=== PATIENT | female | born 1955 | race Caucasian/White ===

== ENCOUNTER 2022-07-18 22:17 | Inpatient (IN) | payer OTHER ==
[2022-07-18] MEDS ORDERED: morphine SULFATE 4 MG/ML VIAL ONE (23:06)
[2022-07-18] MEDS ORDERED: morphine CARPU-JECT 4 MG/1 ML DISP.SYRIN IM ONE (23:12)
[2022-07-18] MEDS: morphine SULFATE 4 MG/ML VIAL IM ONE ×2 (23:15→23:16)
[2022-07-19 03:43] LABS: BASO % 0.9 % (0-2.0); EOS % 1.2 % (0-4.5); HEMATOCRIT 27.6 % (32.4-45.2); HEMOGLOBIN 9.1 GM/dL (10.7-15.3); LYMPH % 37.6 % (8-40); MCH 34.3 pg (25.7-33.7); MCHC 33.1 g/dl (32.0-36.0); MEAN CELL VOLUME 103.6 fl (80-96); MEAN PLT VOLUME 6.9 fl (7.5-11.1); NEUT % 56.3 % (42.8-82.8); PLATELET COUNT 338 10^3/uL (134-434); RBC 2.66 M/mm3 (3.60-5.2); RDW 19.9 % (11.6-15.6); WHITE BLOOD COUNT 9.4 K/mm3 (4.0-10.0)
[2022-07-19 03:50] LABS: INR 1.09 (0.83-1.09); PROTHROMBIN TIME (PATIENT) 12.5 SEC (9.7-13.0)
[2022-07-19 03:52] LABS: ACTIVATED PTT 28.8 SECONDS (25.2-36.5)
[2022-07-19 04:03] LABS: CALCIUM 10.4 mg/dL (8.5-10.1)
[2022-07-19 04:04] LABS: ALBUMIN 3.3 g/dl (3.4-5.0); BLOOD UREA NITROGEN 22.6 mg/dL (7-18); MAGNESIUM 1.9 mg/dL (1.8-2.4)
[2022-07-19 04:07] LABS: CREATININE 0.9 mg/dL (0.55-1.3); PHOSPHOROUS 3.4 mg/dL (2.5-4.9)
[2022-07-19 04:09] LABS: BILIRUBIN,TOTAL 0.2 mg/dL (0.2-1); TOT PROT 6.7 g/dl (6.4-8.2)
[2022-07-19] MEDS: SERTRALINE HCL 25 MG TABLET (FP) PO SCH (12:02)
[2022-07-19] MEDS ORDERED: diazePAM 5 MG TABLET PO ONE (20:00)
[2022-07-19] MEDS: diazePAM 5 MG TABLET PO ONE ×2 (20:08→20:13)
[2022-07-20] MEDS: ENOXAPARIN NA (PORCINE) 40 MG/0.4 ML DISP.SYRIN SQ SCH (11:50)
[2022-07-20] MEDS: SERTRALINE HCL 25 MG TABLET (FP) PO SCH (11:50)
[2022-07-21] MEDS: ENOXAPARIN NA (PORCINE) 40 MG/0.4 ML DISP.SYRIN SQ SCH (10:23)
[2022-07-21] MEDS: SERTRALINE HCL 25 MG TABLET (FP) PO SCH (10:24)
[2022-07-22] MEDS: ENOXAPARIN NA (PORCINE) 40 MG/0.4 ML DISP.SYRIN SQ SCH (09:27)
[2022-07-22] MEDS: ALPRAZolam 0.25 MG TABLET PO PRN (09:28)
[2022-07-22] MEDS: SERTRALINE HCL 25 MG TABLET (FP) PO SCH (09:28)
[2022-07-23 08:07] LABS: HEMATOCRIT 23.5 % (32.4-45.2); HEMOGLOBIN 7.6 GM/dL (10.7-15.3); MCH 33.7 pg (25.7-33.7); MCHC 32.3 g/dl (32.0-36.0); MEAN CELL VOLUME 104.2 fl (80-96); MEAN PLT VOLUME 7.1 fl (7.5-11.1); PLATELET COUNT 301 10^3/uL (134-434); RBC 2.26 M/mm3 (3.60-5.2); RDW 19.3 % (11.6-15.6)
[2022-07-23 08:30] LABS: CALCIUM 10.8 mg/dL (8.5-10.1)
[2022-07-23 08:31] LABS: BLOOD UREA NITROGEN 15.5 mg/dL (7-18)
[2022-07-23 08:34] LABS: CREATININE 0.7 mg/dL (0.55-1.3)
[2022-07-23 08:35] LABS: TOT PROT 6.2 g/dl (6.4-8.2)
[2022-07-23 08:36] LABS: BILIRUBIN,TOTAL 0.2 mg/dL (0.2-1)
[2022-07-23] MEDS: SERTRALINE HCL 25 MG TABLET (FP) PO SCH (09:58)
[2022-07-23 11:17] LABS: ANISOCYTOSIS 2+; MACROCYTOSIS 0; OVALOCYTE 2+; TEAR DROP CELLS 1+
[2022-07-23] MEDS: ALPRAZolam 0.25 MG TABLET PO PRN (11:29)
[2022-07-23 22:25] LABS: EPI CELLS 32 /uL (0-25.1); HYALINE CASTS 31 /uL (0-3.1); URINE APPEARANCE TURBID; URINE BACTERIA >9,000 /uL (0-1359); URINE BILIRUBIN NEGATIVE (NEGATIVE); URINE COLOR YELLOW; URINE GLUCOSE (UA) NEGATIVE (NEGATIVE); URINE KETONE NEGATIVE (NEGATIVE); URINE LEUK ESTERASE 2+ (NEGATIVE); URINE NITRITE POSITIVE (NEGATIVE); URINE PROTEIN 2+ (NEGATIVE); URINE UROBILINOGEN 0.2 mg/dL (0.2-1.0); URINE WBC 549 /uL (0-25.8)
[2022-07-23 23:56] LABS: URINE RBC 157.1 /uL (0-23.9)
[2022-07-23 23:57] LABS: URINE CRYSTALS FEW /hpf; YEAST NONE SEEN (NEGATIVE)
[2022-07-24] MEDS: SERTRALINE HCL 25 MG TABLET (FP) PO SCH (09:16)
[2022-07-24 12:42] VITALS: BMI 19.0
[2022-07-24 17:07] LABS: FREE KAPPA,SERUM Note: mg/L (3.3-19.4)
[2022-07-25] MEDS: SERTRALINE HCL 25 MG TABLET (FP) PO SCH (10:36)
[2022-07-25] MEDS ORDERED: diazePAM 5 MG TABLET PO ONE (11:07)
[2022-07-25] MEDS ORDERED: LORazepam 2 MG/ML SDV VIAL IVPUSH ONE (11:30)
[2022-07-25 17:05] LABS: BASO % 0.7 % (0-2.0); EOS % 1.5 % (0-4.5); HEMATOCRIT 23.2 % (32.4-45.2); HEMOGLOBIN 7.8 GM/dL (10.7-15.3); LYMPH % 33.3 % (8-40); MCH 34.6 pg (25.7-33.7); MCHC 33.4 g/dl (32.0-36.0); MEAN CELL VOLUME 103.6 fl (80-96); MEAN PLT VOLUME 6.8 fl (7.5-11.1); MONO % 4.6 % (3.8-10.2); NEUT % 59.9 % (42.8-82.8); PLATELET COUNT 327 10^3/uL (134-434); RBC 2.24 M/mm3 (3.60-5.2); RDW 19.5 % (11.6-15.6); WHITE BLOOD COUNT 8.3 K/mm3 (4.0-10.0)
[2022-07-25 17:13] LABS: CALCIUM 10.4 mg/dL (8.5-10.1)
[2022-07-25 17:14] LABS: BLOOD UREA NITROGEN 15.8 mg/dL (7-18)
[2022-07-25 17:17] LABS: CREATININE 0.8 mg/dL (0.55-1.3)
[2022-07-25 17:18] LABS: TOT PROT 6.5 g/dl (6.4-8.2)
[2022-07-25 17:19] LABS: BILIRUBIN,TOTAL 0.1 mg/dL (0.2-1)
[2022-07-26 09:06] LABS: BASO % 0.7 % (0-2.0); EOS % 1.7 % (0-4.5); HEMATOCRIT 24.6 % (32.4-45.2); HEMOGLOBIN 8.3 GM/dL (10.7-15.3); LYMPH % 35.4 % (8-40); MCH 34.7 pg (25.7-33.7); MCHC 33.6 g/dl (32.0-36.0); MEAN CELL VOLUME 103.2 fl (80-96); MEAN PLT VOLUME 6.7 fl (7.5-11.1); MONO % 3.3 % (3.8-10.2); NEUT % 58.9 % (42.8-82.8); PLATELET COUNT 333 10^3/uL (134-434); RBC 2.38 M/mm3 (3.60-5.2); RDW 19.9 % (11.6-15.6); WHITE BLOOD COUNT 7.5 K/mm3 (4.0-10.0)
[2022-07-26 09:25] LABS: CALCIUM 11.4 mg/dL (8.5-10.1)
[2022-07-26 09:26] LABS: ALBUMIN 3.1 g/dl (3.4-5.0); BLOOD UREA NITROGEN 15.9 mg/dL (7-18)
[2022-07-26 09:27] LABS: CREATININE 0.7 mg/dL (0.55-1.3)
[2022-07-26 09:30] LABS: BILIRUBIN,TOTAL 0.3 mg/dL (0.2-1); TOT PROT 6.6 g/dl (6.4-8.2)
[2022-07-26] MEDS: SERTRALINE HCL 25 MG TABLET (FP) PO SCH (09:39)
[2022-07-26] MEDS: ALPRAZolam 0.25 MG TABLET PO PRN (09:39)
[2022-07-26] MEDS ORDERED: CEFTRIAXONE 1 GM in DEXTROSE 5%-WATER 100 ML IVPB SCH (13:00)
[2022-07-26] MEDS: ALPRAZolam 0.25 MG TABLET PO SCH ×2 (14:18→21:21)
[2022-07-27] MEDS: ALPRAZolam 0.25 MG TABLET PO SCH ×3 (05:50→21:45)
[2022-07-27] MEDS ORDERED: SEVOFLURANE 250 ML BTL ONE (06:58)
[2022-07-27] MEDS ORDERED: PROPOFOL 20 ML ONE (06:59)
[2022-07-27] MEDS ORDERED: MIDAZOLAM HCL 2 MG/2 ML SINGLE DOSE VIAL ONE (07:00)
[2022-07-27] MEDS ORDERED: BUPIVACAINE HCL 100 ML ONE (07:01)
[2022-07-27] MEDS ORDERED: DEXAMETHASONE SOD PHOSPHATE 10 MG/1 ML VIAL ONE (07:02)
[2022-07-27] MEDS ORDERED: ACETAMINOPHEN 325 MG TABLET (FP) PO PRN ×2 (07:16→09:49)
[2022-07-27] MEDS ORDERED: ONDANSETRON 4 MG/2 ML VIAL IVPUSH PRN ×2 (07:16→09:49)
[2022-07-27] MEDS ORDERED: LACTATED RINGERS SOLUTION 1,000 ML IV SCH ×2 (07:30→09:49)
[2022-07-27] MEDS ORDERED: ceFAZolin SODIUM 1 GM VIAL IVPB ONE (08:40)
[2022-07-27] MEDS ORDERED: ONDANSETRON 4 MG/2 ML VIAL ONE (08:44)
[2022-07-27] MEDS: SERTRALINE HCL 25 MG TABLET (FP) PO SCH (09:33)
[2022-07-27] MEDS ORDERED: LORazepam 2 MG/ML SDV VIAL IVPUSH ONE (09:49)
[2022-07-27] MEDS: CEFTRIAXONE 1 GM in DEXTROSE 5%-WATER 100 ML IVPB SCH (10:51)
[2022-07-27] MEDS ORDERED: ALPRAZolam 0.25 MG TABLET PO PRN (18:12)
[2022-07-27] MEDS: ACETAMINOPHEN 325 MG TABLET (FP) PO PRN (18:15)
[2022-07-28] MEDS: ALPRAZolam 0.25 MG TABLET PO SCH ×3 (06:05→20:46)
[2022-07-28] MEDS: ACETAMINOPHEN 325 MG TABLET (FP) PO PRN (06:07)
[2022-07-28] MEDS: CEFTRIAXONE 1 GM in DEXTROSE 5%-WATER 100 ML IVPB SCH (09:28)
[2022-07-28] MEDS: SERTRALINE HCL 25 MG TABLET (FP) PO SCH (09:29)
[2022-07-28] MEDS ORDERED: morphine CARPU-JECT 2 MG/1 ML DISP.SYRIN IVPUSH PRN (11:15)
[2022-07-28] MEDS ORDERED: ACETAMINOPHEN 1000 MG/100 ML BAG IVPB ONE (23:32)
[2022-07-29] MEDS: ALPRAZolam 0.25 MG TABLET PO SCH ×3 (05:06→20:11)
[2022-07-29] MEDS: SERTRALINE HCL 25 MG TABLET (FP) PO SCH (09:47)
[2022-07-29] MEDS: CEFTRIAXONE 1 GM in DEXTROSE 5%-WATER 100 ML IVPB SCH (09:47)
[2022-07-29 09:54] LABS: HEMATOCRIT 19.6 % (32.4-45.2); MCH 34.7 pg (25.7-33.7); MCHC 33.6 g/dl (32.0-36.0); MEAN CELL VOLUME 103.2 fl (80-96); MEAN PLT VOLUME 6.6 fl (7.5-11.1); PLATELET COUNT 254 10^3/uL (134-434); RDW 19.4 % (11.6-15.6); WHITE BLOOD COUNT 8.5 K/mm3 (4.0-10.0)
[2022-07-29 09:59] LABS: BLOOD UREA NITROGEN 15.1 mg/dL (7-18); CALCIUM 10.5 mg/dL (8.5-10.1)
[2022-07-29 10:00] LABS: ALBUMIN 2.8 g/dl (3.4-5.0)
[2022-07-29 10:02] LABS: CREATININE 0.7 mg/dL (0.55-1.3)
[2022-07-29 10:03] LABS: BILIRUBIN,TOTAL 0.3 mg/dL (0.2-1); TOT PROT 5.9 g/dl (6.4-8.2)
[2022-07-29 10:04] LABS: HEMOGLOBIN 6.6 GM/dL (10.7-15.3)
[2022-07-29 12:23] LABS: ANISOCYTOSIS 2+; MACROCYTOSIS 0
[2022-07-30] MEDS: ALPRAZolam 0.25 MG TABLET PO SCH ×3 (05:23→21:20)
[2022-07-30 09:45] LABS: HEMATOCRIT 23.9 % (32.4-45.2); MCH 33.2 pg (25.7-33.7); MCHC 33.5 g/dl (32.0-36.0); MEAN CELL VOLUME 99.1 fl (80-96); MEAN PLT VOLUME 7.2 fl (7.5-11.1); PLATELET COUNT 265 10^3/uL (134-434); RBC 2.41 M/mm3 (3.60-5.2); RDW 20.1 % (11.6-15.6)
[2022-07-30] MEDS: CEFTRIAXONE 1 GM in DEXTROSE 5%-WATER 100 ML IVPB SCH (09:48)
[2022-07-30] MEDS: SERTRALINE HCL 25 MG TABLET (FP) PO SCH (09:48)
[2022-07-30 10:30] LABS: CALCIUM 11.2 mg/dL (8.5-10.1)
[2022-07-30 10:31] LABS: ALBUMIN 2.8 g/dl (3.4-5.0); BLOOD UREA NITROGEN 11.8 mg/dL (7-18)
[2022-07-30 10:33] LABS: CREATININE 0.6 mg/dL (0.55-1.3)
[2022-07-30 10:35] LABS: BILIRUBIN,TOTAL 0.5 mg/dL (0.2-1); TOT PROT 6.3 g/dl (6.4-8.2)
[2022-07-30] MEDS: oxyCODONE HCL 5 MG TABLET PO PRN (12:46)
[2022-07-30 13:05] LABS: ANISOCYTOSIS 2+; MACROCYTOSIS 0; OVALOCYTE 2+; TEAR DROP CELLS 1+
[2022-07-31] MEDS: oxyCODONE HCL 5 MG TABLET PO PRN (00:48)
[2022-07-31] MEDS: ALPRAZolam 0.25 MG TABLET PO SCH ×4 (05:43→22:20)
[2022-07-31] MEDS: ACETAMINOPHEN 325 MG TABLET (FP) PO PRN ×2 (06:51→14:58)
[2022-07-31] MEDS: CEFTRIAXONE 1 GM in DEXTROSE 5%-WATER 100 ML IVPB SCH (11:17)
[2022-07-31] MEDS: SERTRALINE HCL 25 MG TABLET (FP) PO SCH (11:18)
[2022-08-01] MEDS: ALPRAZolam 0.25 MG TABLET PO SCH ×2 (05:40→14:14)
[2022-08-01 07:19] VITALS: RESP 18
[2022-08-01] MEDS: SERTRALINE HCL 25 MG TABLET (FP) PO SCH (09:49)
[2022-08-01] MEDS: ACETAMINOPHEN 325 MG TABLET (FP) PO PRN (09:49)
[2022-08-01] MEDS: CEFTRIAXONE 1 GM in DEXTROSE 5%-WATER 100 ML IVPB SCH (09:49)
[2022-08-01 14:57] VITALS: BP 96/58; PULSE 99; TEMP 98.4
== END 2022-08-01 15:13 | DRG 315 ==
LOC: JER 22:17 → JERBED 07-19 01:31 → J7W 07-19 16:35 → OBSVTOIN 07-23 10:53
PROVIDERS: ADMIT Hospitalist; ATTEND Internal Medicine
PROC: 07DT3ZX Extraction of Bone Marrow, Percutaneous Approach, Diagnostic (ICD-10-PCS; 2022-07-23)
PROC: 0PB Upper Bones, Excision (ICD-10-PCS; 2022-07-27)
PROC: 0PHG36Z Insertion of Intramedullary Internal Fixation Device into Left Humeral Shaft, Percutaneous Approach (ICD-10-PCS; principal; 2022-07-27 08:44)
PROC: 30233N1 Transfusion of Nonautologous Red Blood Cells into Peripheral Vein, Percutaneous Approach (ICD-10-PCS; 2022-07-29)
DX: M84.522A Pathological fracture in neoplastic disease, left humerus, initial encounter for fracture (principal); C79.51 Secondary malignant neoplasm of bone; E43 Unspecified severe protein-calorie malnutrition; C90.00 Multiple myeloma not having achieved remission; D51.9 Vitamin B12 deficiency anemia, unspecified; F41.9 Anxiety disorder, unspecified; M85.80 Other specified disorders of bone density and structure, unspecified site; Z68.1 Body mass index [BMI] 19.9 or less, adult; F41.8 Other specified anxiety disorders
CPT/HCPCS: 20225; 36415; 36430; 71250-TC; 72050-TC-FY; 72070-TC-FY; 72100-TC-FY; 73030-TC-LT-FY; 73060-TC-LT-FY; 73221-TC-LT; 74176-TC; 76000-TC-FY; 78306-TC; 80048; 80053; 81003; 82784; 83735; 83883; 84100; 84155; 84165; 85025; 85610; 85730; 86850; 86900; 86901; 86922; 87086; 87186; 88304-TC; 88307-TC; 88311-TC; 88341-TC; 93005; 93010; 94760; 99285-25; A9503; C1713; C9803-CS; G0378; J1100; P9058; U0003; U0005

== ENCOUNTER 2023-06-04 23:15 | Inpatient (IN) | payer OTHER ==
[2023-06-05] MEDS ORDERED: ACETAMINOPHEN 1000 MG/100 ML BAG IVPB ONE ×2 (00:14→20:54)
[2023-06-05] MEDS ORDERED: PIPERACILLIN/TAZOBACTAM 4.5 GM VIAL IVPB ONE (00:14)
[2023-06-05] MEDS ORDERED: SODIUM CHLORIDE 0.9% 500 ML INFUS.BAG IV ONE ×2 (00:14→02:03)
[2023-06-05] MEDS ORDERED: VANCOMYCIN 750 MG in DEXTROSE 5%-WATER - 100 ML IVPB ONE (00:14)
[2023-06-05 00:18] LABS: VENOUS BASE EXCESS -2.7 mmol/L (-2-2); VENOUS O2 SATURATION 79.8 % (70-80); VENOUS PCO2 60.3 mmHg (38-52); VENOUS PH 7.236 (7.310-7.410)
[2023-06-05] MEDS ORDERED: ACETAMINOPHEN INJECTION 100 ML IVPB ONE (00:20)
[2023-06-05] MEDS ORDERED: PIPERACILLIN/TAZOB 4.5 GM 4.5 GM/100 ML BAG IVPB ONE (00:20)
[2023-06-05 00:27] LABS: HEMATOCRIT 25.3 % (32.4-45.2); HEMOGLOBIN 7.9 GM/dL (10.7-15.3); MCH 35.1 pg (25.7-33.7); MCHC 31.4 g/dl (32.0-36.0); MEAN CELL VOLUME 111.6 fl (80-96); MEAN PLT VOLUME 8.2 fl (7.5-11.1); PLATELET COUNT 173 10^3/uL (134-434); RBC 2.26 M/mm3 (3.60-5.2); WHITE BLOOD COUNT 8.5 K/mm3 (4.0-10.0)
[2023-06-05 00:35] LABS: INR 1.21 (0.83-1.09)
[2023-06-05 00:37] LABS: ACTIVATED PTT 28.7 SECONDS (25.2-36.5)
[2023-06-05 00:47] LABS: CHLORIDE 107 mmol/L (98-107); SODIUM 142 mmol/L (136-145)
[2023-06-05 00:49] LABS: ALBUMIN 3.2 g/dl (3.4-5.0); BLOOD UREA NITROGEN 69.7 mg/dL (7-18); CALCIUM 8.3 mg/dL (8.5-10.1); CO2 30 mmol/L (21-32); GLUCOSE,RANDOM 168 mg/dL (74-106)
[2023-06-05 00:52] LABS: SGOT/AST 80 U/L (15-37); SGPT/ALT 51 U/L (13-61)
[2023-06-05 00:54] LABS: TOT PROT 6.4 g/dl (6.4-8.2)
[2023-06-05 00:55] LABS: ALK PHOS 153 U/L (45-117); CREATININE 2.4 mg/dL (0.55-1.3)
[2023-06-05 01:07] LABS: EPI CELLS 16 /uL (0-25.1); HYALINE CASTS 0 /uL (0-3.1); PH,URINE 5.5 (5.0-8.0); URINE APPEARANCE TURBID; URINE BACTERIA >9,000 /uL (0-1359); URINE BILIRUBIN NEGATIVE (NEGATIVE); URINE COLOR YELLOW; URINE GLUCOSE (UA) NEGATIVE (NEGATIVE); URINE KETONE NEGATIVE (NEGATIVE); URINE LEUK ESTERASE 3+ (NEGATIVE); URINE NITRITE NEGATIVE (NEGATIVE); URINE PROTEIN 3+ (NEGATIVE); URINE RBC 43 /uL (0-23.9); URINE UROBILINOGEN 0.2 mg/dL (0.2-1.0); URINE WBC 5146 /uL (0-25.8)
[2023-06-05 01:07] LABS: BILIRUBIN,TOTAL 0.1 mg/dL (0.2-1)
[2023-06-05 01:08] LABS: ANION GAP 5 MMOL/L (8-16); POTASSIUM 6.5 mmol/L (3.5-5.1)
[2023-06-05] MEDS ORDERED: CALCIUM GLUCONATE 10% - 1,000 MG/10 ML VIAL IVPUSH ONE (01:12)
[2023-06-05] MEDS ORDERED: INSULIN REGULAR HUMAN 100 UNITS/ML *VIAL IVPUSH ONE ×3 (01:14→21:58)
[2023-06-05] MEDS ORDERED: SODIUM CHLORIDE 500 ML IV STA (01:15)
[2023-06-05] MEDS ORDERED: DEXTROSE 50%-WATER - 25 GM/50 ML VIAL IVPUSH ONE (01:15)
[2023-06-05] MEDS ORDERED: CALCIUM GLUC IN NACL, ISO-OSM 1 GM/50 ML BAG IVPB ONE ×2 (01:17→08:18)
[2023-06-05] MEDS ORDERED: DEXTROSE 50%-WATER 25 GM/50 ML DISP.SYRIN ONE (01:18)
[2023-06-05] MEDS ORDERED: INSULIN REGULAR HUMAN 100 UNITS/ML *VIAL ONE (01:18)
[2023-06-05 01:58] LABS: ANISOCYTOSIS 2+; MACROCYTOSIS 1+; ROULEAU 1+
[2023-06-05] MEDS ORDERED: ROCURONIUM BROMIDE 50 MG/5 ML SYRINGE ONE (02:19)
[2023-06-05] MEDS ORDERED: FENTANYL CITRATE/PF 50 MCG/ML VIAL ONE (02:21)
[2023-06-05] MEDS ORDERED: PHENYLEPHRINE HCL 10 MG/1 ML SINGLE DOSE VIAL ONE (02:23)
[2023-06-05] MEDS ORDERED: FENTANYL CITRATE/PF 50 MCG/ML VIAL IVPUSH ONE (02:35)
[2023-06-05] MEDS ORDERED: PHENYLEPHRINE HCL 10 MG/1 ML SINGLE DOSE VIAL IVPB ONE (02:35)
[2023-06-05] MEDS ORDERED: ROCURONIUM BROMIDE 50 MG/5 ML VIAL IV ONE (02:36)
[2023-06-05] MEDS ORDERED: FENTANYL NS IVPB 500 MCG/100 ML BAG IVPB ONE (04:11)
[2023-06-05] MEDS: FENTANYL IVPB 500 MCG/100 ML BAG IVPB SCH ×3 (04:17→20:37)
[2023-06-05] MEDS: HYDROCORTISONE SOD SUCCINATE 100 MG/2 ML VIAL IVPB SCH ×4 (05:31→22:28)
[2023-06-05] MEDS: VASOPRESSIN 40 UNITS/100 ML BAG IV SCH (05:32)
[2023-06-05] MEDS: NOREPINEPHRINE BITARTRATE/D5W 8 MG/250 ML BAG IVPB SCH ×2 (05:34→12:55)
[2023-06-05 06:49] LABS: ARTERIAL BLD GAS O2 SATURATION 93.9 % (95-98); ARTERIAL BLOOD GAS BASE EXCESS -7.9 mmol/L (-2-2); ARTERIAL BLOOD GAS PO2 90.2 mmHg (80-100)
[2023-06-05 06:54] LABS: ALLENS TEST POSITIVE; VENT MODE A/C; VENT RATE 16
[2023-06-05 06:56] LABS: ARTERIAL BLOOD GAS pH 7.141 (7.350-7.450)
[2023-06-05 07:19] LABS: HEMATOCRIT 22.6 % (32.4-45.2); MCH 35.4 pg (25.7-33.7); MCHC 30.8 g/dl (32.0-36.0); MEAN PLT VOLUME 8.2 fl (7.5-11.1); PLATELET COUNT 135 10^3/uL (134-434); RBC 1.97 M/mm3 (3.60-5.2); WHITE BLOOD COUNT 7.1 K/mm3 (4.0-10.0)
[2023-06-05 07:33] LABS: CHLORIDE 110 mmol/L (98-107); SODIUM 143 mmol/L (136-145)
[2023-06-05 07:35] LABS: GLUCOSE,RANDOM 219 mg/dL (74-106)
[2023-06-05 07:36] LABS: ALBUMIN 2.8 g/dl (3.4-5.0); ANION GAP 6 MMOL/L (8-16); CO2 26 mmol/L (21-32)
[2023-06-05 07:38] LABS: SGOT/AST 268 U/L (15-37)
[2023-06-05 07:39] LABS: CREATININE 2.2 mg/dL (0.55-1.3); SGPT/ALT 176 U/L (13-61)
[2023-06-05 07:40] LABS: BILIRUBIN,TOTAL 0.4 mg/dL (0.2-1); TOT PROT 5.6 g/dl (6.4-8.2)
[2023-06-05 07:43] LABS: N-TERMINAL BNP 14432.1 pg/ml (5-125)
[2023-06-05 07:47] LABS: ALK PHOS 226 U/L (45-117); CALCIUM 6.9 mg/dL (8.5-10.1)
[2023-06-05 07:59] LABS: MAGNESIUM 2.9 mg/dL (1.8-2.4)
[2023-06-05] MEDS ORDERED: PIPERACILLIN/TAZOB 4.5 GM 4.5 GM in DEXTROSE 5%-WATER 100 ML IVPB SCH ×2 (08:00→10:00)
[2023-06-05 08:03] LABS: PHOSPHOROUS 6.1 mg/dL (2.5-4.9)
[2023-06-05] MEDS ORDERED: DEXTROSE 50%-WATER 25 GM/50 ML DISP.SYRIN IVPUSH ONE ×2 (08:24→21:59)
[2023-06-05] MEDS ORDERED: SODIUM ZIRCONIUM CYCLOSILICATE (LOKELMA) 5 GM PACKET PO SCH ×2 (08:58→12:00)
[2023-06-05] MEDS ORDERED: SODIUM ZIRCONIUM CYCLOSILICATE (LOKELMA) 5 GM PACKET PO ONE (09:03)
[2023-06-05 09:09] LABS: ANISOCYTOSIS 1+; MACROCYTOSIS 0
[2023-06-05] MEDS: HEPARIN NA (PORCINE) 5,000 UNITS/ML 1ML VIAL SQ SCH ×2 (09:11→21:14)
[2023-06-05] MEDS ORDERED: FAMOTIDINE 20 MG TABLET PO SCH (10:00)
[2023-06-05] MEDS: MUPIROCIN 2% TOPICAL OINTMENT FOR DECOLONIZATION NS SCH ×2 (11:00→21:14)
[2023-06-05] MEDS ORDERED: SODIUM CHLORIDE 1,000 ML IV SCH (11:45)
[2023-06-05] MEDS: PIPERACILLIN/TAZOB 2.25 GM 2.25 GM in DEXTROSE 5%-WATER - 50 ML IVPB SCH ×2 (16:35→21:09)
[2023-06-05 16:52] LABS: ARTERIAL BLD GAS O2 SATURATION 98.5 % (95-98); ARTERIAL BLOOD GAS BASE EXCESS -7.2 mmol/L (-2-2); ARTERIAL BLOOD GAS PO2 132.6 mmHg (80-100); ARTERIAL BLOOD GAS pH 7.322 (7.350-7.450)
[2023-06-05 16:55] LABS: VENT MODE A/C; VENT RATE 28
[2023-06-05 21:08] LABS: POTASSIUM 5.9 mmol/L (3.5-5.1)
[2023-06-05 21:09] LABS: CALCIUM 7.1 mg/dL (8.5-10.1)
[2023-06-05 21:10] LABS: BLOOD UREA NITROGEN 68.4 mg/dL (7-18)
[2023-06-05 21:13] LABS: CREATININE 2.5 mg/dL (0.55-1.3)
[2023-06-05] MEDS: CHLORHEXIDINE GLUCONATE 4% CLEANSER FOR DECOLONIZATION TP SCH (21:14)
[2023-06-05] MEDS ORDERED: SODIUM ZIRCONIUM CYCLOSILICATE (LOKELMA) 5 GM PACKET NGT ONE (22:40)
[2023-06-06] MEDS ORDERED: FENTANYL NS IVPB 500 MCG/100 ML BAG IVPB ONE (01:06)
[2023-06-06] MEDS: FENTANYL IVPB 500 MCG/100 ML BAG IVPB SCH ×3 (01:50→16:36)
[2023-06-06] MEDS: NOREPINEPHRINE BITARTRATE/D5W 8 MG/250 ML BAG IVPB SCH ×2 (01:50→20:08)
[2023-06-06] MEDS: PIPERACILLIN/TAZOB 2.25 GM 2.25 GM in DEXTROSE 5%-WATER - 50 ML IVPB SCH ×4 (02:00→21:21)
[2023-06-06] MEDS: HYDROCORTISONE SOD SUCCINATE 100 MG/2 ML VIAL IVPB SCH ×4 (05:42→21:45)
[2023-06-06 07:27] LABS: ARTERIAL BLD GAS O2 SATURATION 98.8 % (95-98); ARTERIAL BLOOD GAS BASE EXCESS -6.5 mmol/L (-2-2); ARTERIAL BLOOD GAS PO2 155.3 mmHg (80-100)
[2023-06-06 07:34] LABS: VENT MODE A/C; VENT RATE 28
[2023-06-06 08:18] LABS: MCH 34.7 pg (25.7-33.7); MCHC 30.9 g/dl (32.0-36.0); MEAN CELL VOLUME 112.1 fl (80-96); MEAN PLT VOLUME 9.8 fl (7.5-11.1); PLATELET COUNT 121 10^3/uL (134-434); RBC 1.87 M/mm3 (3.60-5.2); WHITE BLOOD COUNT 11.8 K/mm3 (4.0-10.0)
[2023-06-06 08:19] LABS: HEMOGLOBIN 6.5 GM/dL (10.7-15.3)
[2023-06-06 08:24] LABS: CHLORIDE 106 mmol/L (98-107); POTASSIUM 5.4 mmol/L (3.5-5.1); SODIUM 138 mmol/L (136-145)
[2023-06-06 08:34] LABS: ALBUMIN 2.6 g/dl (3.4-5.0); ANION GAP 9 MMOL/L (8-16); CO2 23 mmol/L (21-32); GLUCOSE,RANDOM 194 mg/dL (74-106); MAGNESIUM 2.9 mg/dL (1.8-2.4)
[2023-06-06 08:35] LABS: BLOOD UREA NITROGEN 73.9 mg/dL (7-18)
[2023-06-06 08:37] LABS: CREATININE 2.6 mg/dL (0.55-1.3); SGPT/ALT 101 U/L (13-61)
[2023-06-06 08:38] LABS: SGOT/AST 79 U/L (15-37)
[2023-06-06 08:39] LABS: BILIRUBIN,TOTAL 0.2 mg/dL (0.2-1); TOT PROT 5.5 g/dl (6.4-8.2)
[2023-06-06] MEDS ORDERED: SODIUM ZIRCONIUM CYCLOSILICATE (LOKELMA) 5 GM PACKET PO ONE (08:41)
[2023-06-06 08:45] LABS: ALK PHOS 145 U/L (45-117); CALCIUM 6.8 mg/dL (8.5-10.1)
[2023-06-06 08:46] LABS: ANISOCYTOSIS 2+; MACROCYTOSIS 2+; OVALOCYTE 1+
[2023-06-06] MEDS: HEPARIN NA (PORCINE) 5,000 UNITS/ML 1ML VIAL SQ SCH ×2 (09:47→21:21)
[2023-06-06] MEDS: PANTOPRAZOLE SODIUM 40 MG VIAL IVPUSH SCH (09:47)
[2023-06-06] MEDS: MUPIROCIN 2% TOPICAL OINTMENT FOR DECOLONIZATION NS SCH ×2 (09:48→21:21)
[2023-06-06] MEDS ORDERED: SODIUM ZIRCONIUM CYCLOSILICATE (LOKELMA) 5 GM PACKET NGT SCH (10:00)
[2023-06-06] MEDS ORDERED: SODIUM CHLORIDE 1,000 ML IV STA (10:39)
[2023-06-06] MEDS: ACETAMINOPHEN 325 MG TABLET (FP) PO PRN (10:42)
[2023-06-06] MEDS ORDERED: CALCIUM GLUC IN NACL, ISO-OSM 1 GM/50 ML BAG IVPB ONE (12:25)
[2023-06-06] MEDS: PROPOFOL 1,000,000 MCG/100 ML VIAL IVPB SCH (13:01)
[2023-06-06] MEDS ORDERED: fentaNYL CITRATE 250 MCG/5 ML VIAL ONE (16:28)
[2023-06-06 17:47] LABS: ARTERIAL BLD GAS O2 SATURATION 97.9 % (95-98); ARTERIAL BLOOD GAS BASE EXCESS -10.5 mmol/L (-2-2); ARTERIAL BLOOD GAS PO2 120.9 mmHg (80-100); ARTERIAL BLOOD GAS pH 7.266 (7.350-7.450)
[2023-06-06 17:53] LABS: VENT RATE 28
[2023-06-06] MEDS: SODIUM CHLORIDE 1,000 ML IV SCH (18:23)
[2023-06-06] MEDS: VASOPRESSIN 40 UNITS/100 ML BAG IV SCH (20:11)
[2023-06-06] MEDS: CHLORHEXIDINE GLUCONATE 4% CLEANSER FOR DECOLONIZATION TP SCH (21:21)
[2023-06-06] MEDS ORDERED: SODIUM ZIRCONIUM CYCLOSILICATE (LOKELMA) 5 GM PACKET NGT ONE (22:40)
[2023-06-07] MEDS: FENTANYL IVPB 500 MCG/100 ML BAG IVPB SCH ×3 (01:00→07:09)
[2023-06-07] MEDS: NOREPINEPHRINE BITARTRATE/D5W 8 MG/250 ML BAG IVPB SCH ×2 (01:00→05:22)
[2023-06-07] MEDS: PIPERACILLIN/TAZOB 2.25 GM 2.25 GM in DEXTROSE 5%-WATER - 50 ML IVPB SCH ×4 (02:00→21:26)
[2023-06-07] MEDS: VASOPRESSIN 40 UNITS/100 ML BAG IV SCH (05:22)
[2023-06-07] MEDS: HYDROCORTISONE SOD SUCCINATE 100 MG/2 ML VIAL IVPB SCH ×4 (05:22→22:45)
[2023-06-07 07:23] LABS: HEMOGLOBIN 7.6 GM/dL (10.7-15.3); MCH 33.7 pg (25.7-33.7); MCHC 32.9 g/dl (32.0-36.0); MEAN PLT VOLUME 9.5 fl (7.5-11.1); PLATELET COUNT 90 10^3/uL (134-434); RBC 2.25 M/mm3 (3.60-5.2); RDW 25.8 % (11.6-15.6); WHITE BLOOD COUNT 10.8 K/mm3 (4.0-10.0)
[2023-06-07 07:36] LABS: MEAN CELL VOLUME 102.5 fl (80-96)
[2023-06-07 07:42] LABS: CHLORIDE 106 mmol/L (98-107); POTASSIUM 4.4 mmol/L (3.5-5.1); SODIUM 138 mmol/L (136-145)
[2023-06-07 07:45] LABS: ALBUMIN 2.4 g/dl (3.4-5.0); ANION GAP 12 MMOL/L (8-16); BLOOD UREA NITROGEN 81.2 mg/dL (7-18); CO2 21 mmol/L (21-32); GLUCOSE,RANDOM 211 mg/dL (74-106); MAGNESIUM 2.7 mg/dL (1.8-2.4)
[2023-06-07 07:48] LABS: CREATININE 2.7 mg/dL (0.55-1.3); PHOSPHOROUS 5.4 mg/dL (2.5-4.9); SGOT/AST 32 U/L (15-37); SGPT/ALT 69 U/L (13-61)
[2023-06-07 07:49] LABS: BILIRUBIN,TOTAL 0.3 mg/dL (0.2-1); TOT PROT 5.4 g/dl (6.4-8.2)
[2023-06-07 07:51] LABS: ALK PHOS 124 U/L (45-117)
[2023-06-07 07:58] LABS: CALCIUM 6.9 mg/dL (8.5-10.1)
[2023-06-07] MEDS ORDERED: CALCIUM GLUC IN NACL, ISO-OSM 1 GM/50 ML BAG IVPB ONE (08:02)
[2023-06-07 08:42] LABS: ANISOCYTOSIS 2+; MACROCYTOSIS 2+
[2023-06-07] MEDS: MUPIROCIN 2% TOPICAL OINTMENT FOR DECOLONIZATION NS SCH ×2 (09:03→21:27)
[2023-06-07] MEDS: HEPARIN NA (PORCINE) 5,000 UNITS/ML 1ML VIAL SQ SCH ×2 (09:03→21:26)
[2023-06-07] MEDS: PANTOPRAZOLE SODIUM 40 MG VIAL IVPUSH SCH (09:04)
[2023-06-07] MEDS: VITAMIN B COMP W-C 1 EA TABLET (NEPHRO-VITE) GT SCH (09:33)
[2023-06-07] MEDS: FLUDROCORTISONE ACETATE 0.1 MG TABLET (FP) PO SCH (10:38)
[2023-06-07] MEDS: PROPOFOL 1,000,000 MCG/100 ML VIAL IVPB SCH (11:59)
[2023-06-07 12:51] LABS: ARTERIAL BLD GAS O2 SATURATION 96.5 % (95-98); ARTERIAL BLOOD GAS BASE EXCESS -9.8 mmol/L (-2-2); ARTERIAL BLOOD GAS PO2 98.7 mmHg (80-100)
[2023-06-07 12:53] LABS: VENT MODE AC; VENT RATE 24
[2023-06-07] MEDS ORDERED: FENTANYL NS IVPB 500 MCG/100 ML BAG IVPB ONE (13:54)
[2023-06-07] MEDS: FENTANYL NS IVPB 500 MCG/100 ML BAG IVPB SCH ×2 (16:38→21:24)
[2023-06-07] MEDS: SODIUM CHLORIDE 1,000 ML IV SCH (17:47)
[2023-06-07] MEDS ORDERED: SODIUM BICARBONATE 8.4% 50 MEQ/50 ML DISP.SYRIN IVPUSH ONE (20:00)
[2023-06-07] MEDS: ACETAMINOPHEN 325 MG TABLET (FP) PO PRN (21:25)
[2023-06-07] MEDS: CHLORHEXIDINE GLUCONATE 4% CLEANSER FOR DECOLONIZATION TP SCH (21:27)
[2023-06-08] MEDS: PIPERACILLIN/TAZOB 2.25 GM 2.25 GM in DEXTROSE 5%-WATER - 50 ML IVPB SCH ×2 (02:14→09:50)
[2023-06-08] MEDS: HYDROCORTISONE SOD SUCCINATE 100 MG/2 ML VIAL IVPB SCH ×4 (05:00→22:45)
[2023-06-08] MEDS: NOREPINEPHRINE BITARTRATE/D5W 8 MG/250 ML BAG IVPB SCH (06:11)
[2023-06-08] MEDS: VASOPRESSIN 40 UNITS/100 ML BAG IV SCH (06:11)
[2023-06-08 07:18] LABS: HEMATOCRIT 22.4 % (32.4-45.2); HEMOGLOBIN 7.2 GM/dL (10.7-15.3); MCH 33.3 pg (25.7-33.7); MCHC 32.3 g/dl (32.0-36.0); MEAN CELL VOLUME 103.2 fl (80-96); MEAN PLT VOLUME 9.7 fl (7.5-11.1); PLATELET COUNT 96 10^3/uL (134-434); RBC 2.17 M/mm3 (3.60-5.2); RDW 24.6 % (11.6-15.6); WHITE BLOOD COUNT 10.3 K/mm3 (4.0-10.0)
[2023-06-08 07:42] LABS: CHLORIDE 104 mmol/L (98-107); POTASSIUM 3.9 mmol/L (3.5-5.1); SODIUM 140 mmol/L (136-145)
[2023-06-08 07:47] LABS: ALBUMIN 2.2 g/dl (3.4-5.0); ANION GAP 13 MMOL/L (8-16); CO2 22 mmol/L (21-32)
[2023-06-08 07:48] LABS: BLOOD UREA NITROGEN 94.6 mg/dL (7-18); GLUCOSE,RANDOM 182 mg/dL (74-106); MAGNESIUM 2.8 mg/dL (1.8-2.4)
[2023-06-08 07:50] LABS: CREATININE 3.2 mg/dL (0.55-1.3); PHOSPHOROUS 5.8 mg/dL (2.5-4.9); SGPT/ALT 48 U/L (13-61)
[2023-06-08 07:51] LABS: SGOT/AST 19 U/L (15-37)
[2023-06-08 07:52] LABS: BILIRUBIN,TOTAL 0.4 mg/dL (0.2-1); TOT PROT 5.3 g/dl (6.4-8.2)
[2023-06-08 07:53] LABS: ALK PHOS 110 U/L (45-117)
[2023-06-08 08:01] LABS: CALCIUM 6.6 mg/dL (8.5-10.1)
[2023-06-08] MEDS ORDERED: CALCIUM GLUCONATE 10% - 1,000 MG/10 ML VIAL IVPB ONE (09:14)
[2023-06-08] MEDS: VITAMIN B COMP W-C 1 EA TABLET (NEPHRO-VITE) GT SCH (09:51)
[2023-06-08] MEDS: HEPARIN NA (PORCINE) 5,000 UNITS/ML 1ML VIAL SQ SCH ×2 (09:51→21:24)
[2023-06-08] MEDS: PANTOPRAZOLE SODIUM 40 MG VIAL IVPUSH SCH (09:51)
[2023-06-08] MEDS: FLUDROCORTISONE ACETATE 0.1 MG TABLET (FP) PO SCH (09:51)
[2023-06-08] MEDS: CALCITRIOL 0.25 MCG CAPSULE (FP) PO SCH (09:51)
[2023-06-08] MEDS: MUPIROCIN 2% TOPICAL OINTMENT FOR DECOLONIZATION NS SCH ×2 (09:52→21:24)
[2023-06-08 09:55] LABS: ANISOCYTOSIS 0; MACROCYTOSIS 1+
[2023-06-08] MEDS ORDERED: LINEZOLID 600 MG PREMIX BAG 600 MG in PREMIX 300 IVPB SCH (12:45)
[2023-06-08] MEDS: MEROPENEM 1 GM in DEXTROSE 5%-WATER 100 ML IVPB SCH ×2 (13:28→21:24)
[2023-06-08] MEDS: PROPOFOL 1,000,000 MCG/100 ML VIAL IVPB SCH (15:47)
[2023-06-08] MEDS: DAPTOMYCIN 250 MG in SODIUM CHLORIDE 50 ML IVPB SCH (16:09)
[2023-06-08] MEDS: FENTANYL NS IVPB 500 MCG/100 ML BAG IVPB SCH (21:23)
[2023-06-08] MEDS: SODIUM CHLORIDE 1,000 ML IV SCH (21:24)
[2023-06-08] MEDS: CHLORHEXIDINE GLUCONATE 4% CLEANSER FOR DECOLONIZATION TP SCH (21:25)
[2023-06-09] MEDS ORDERED: NOREPINEPHRINE BITARTRATE 4 MG/4 ML ML IV ONE ×2 (00:31→00:36)
[2023-06-09] MEDS: HYDROCORTISONE SOD SUCCINATE 100 MG/2 ML VIAL IVPB SCH ×4 (05:02→21:52)
[2023-06-09] MEDS: VASOPRESSIN 40 UNITS/100 ML BAG IV SCH (05:03)
[2023-06-09] MEDS ORDERED: NOREPINEPHRINE BITARTRATE 16,000 MCG in SODIUM CHLORIDE 484 ML IV SCH (06:30)
[2023-06-09 07:17] LABS: ARTERIAL BLD GAS O2 SATURATION 98.5 % (95-98); ARTERIAL BLOOD GAS BASE EXCESS -9.8 mmol/L (-2-2); ARTERIAL BLOOD GAS PO2 143.9 mmHg (80-100); ARTERIAL BLOOD GAS pH 7.252 (7.350-7.450)
[2023-06-09 07:22] LABS: HEMATOCRIT 20.8 % (32.4-45.2); MEAN CELL VOLUME 103.2 fl (80-96); MEAN PLT VOLUME 10.4 fl (7.5-11.1); PLATELET COUNT 91 10^3/uL (134-434); RBC 2.01 M/mm3 (3.60-5.2); RDW 24.2 % (11.6-15.6); WHITE BLOOD COUNT 12.2 K/mm3 (4.0-10.0)
[2023-06-09 07:24] LABS: VENT MODE A/C; VENT RATE 24
[2023-06-09 07:26] LABS: CHLORIDE 106 mmol/L (98-107); HEMOGLOBIN 6.6 GM/dL (10.7-15.3); POTASSIUM 3.8 mmol/L (3.5-5.1); SODIUM 141 mmol/L (136-145)
[2023-06-09 07:29] LABS: ANION GAP 14 MMOL/L (8-16); CO2 20 mmol/L (21-32); GLUCOSE,RANDOM 170 mg/dL (74-106); MAGNESIUM 2.7 mg/dL (1.8-2.4)
[2023-06-09 07:32] LABS: CREATININE 3.5 mg/dL (0.55-1.3)
[2023-06-09 07:33] LABS: BLOOD UREA NITROGEN 105.7 mg/dL (7-18); CALCIUM 6.4 mg/dL (8.5-10.1)
[2023-06-09] MEDS: VITAMIN B COMP W-C 1 EA TABLET (NEPHRO-VITE) GT SCH (10:13)
[2023-06-09] MEDS: FLUDROCORTISONE ACETATE 0.1 MG TABLET (FP) PO SCH (10:13)
[2023-06-09] MEDS: MUPIROCIN 2% TOPICAL OINTMENT FOR DECOLONIZATION NS SCH ×2 (10:13→21:51)
[2023-06-09] MEDS: HEPARIN NA (PORCINE) 5,000 UNITS/ML 1ML VIAL SQ SCH ×2 (10:13→21:52)
[2023-06-09] MEDS: PANTOPRAZOLE SODIUM 40 MG VIAL IVPUSH SCH (10:13)
[2023-06-09] MEDS: CALCITRIOL 0.25 MCG CAPSULE (FP) PO SCH (10:13)
[2023-06-09] MEDS: MEROPENEM 1 GM in DEXTROSE 5%-WATER 100 ML IVPB SCH (10:13)
[2023-06-09] MEDS: FENTANYL NS IVPB 500 MCG/100 ML BAG IVPB SCH (18:36)
[2023-06-09] MEDS: PROPOFOL 1,000,000 MCG/100 ML VIAL IVPB SCH (18:36)
[2023-06-09] MEDS: SODIUM CHLORIDE 1,000 ML IV SCH (18:37)
[2023-06-09] MEDS: CHLORHEXIDINE GLUCONATE 4% CLEANSER FOR DECOLONIZATION TP SCH (22:30)
[2023-06-10] MEDS: SODIUM CHLORIDE 1,000 ML IV SCH (02:42)
[2023-06-10] MEDS: VASOPRESSIN 40 UNITS/100 ML BAG IV SCH (03:55)
[2023-06-10] MEDS: HYDROCORTISONE SOD SUCCINATE 100 MG/2 ML VIAL IVPB SCH ×3 (05:46→21:11)
[2023-06-10 07:03] LABS: HEMATOCRIT 23.2 % (32.4-45.2); HEMOGLOBIN 7.6 GM/dL (10.7-15.3); MCH 32.6 pg (25.7-33.7); MEAN CELL VOLUME 98.9 fl (80-96); MEAN PLT VOLUME 10.8 fl (7.5-11.1); PLATELET COUNT 102 10^3/uL (134-434); RBC 2.35 M/mm3 (3.60-5.2); RDW 23.4 % (11.6-15.6); WHITE BLOOD COUNT 16.7 K/mm3 (4.0-10.0)
[2023-06-10 07:23] LABS: CHLORIDE 107 mmol/L (98-107); POTASSIUM 3.8 mmol/L (3.5-5.1); SODIUM 140 mmol/L (136-145)
[2023-06-10 07:31] LABS: ANION GAP 14 MMOL/L (8-16); CO2 19 mmol/L (21-32); GLUCOSE,RANDOM 135 mg/dL (74-106)
[2023-06-10 07:32] LABS: MAGNESIUM 2.7 mg/dL (1.8-2.4)
[2023-06-10 07:35] LABS: CREATININE 3.8 mg/dL (0.55-1.3); PHOSPHOROUS 5.9 mg/dL (2.5-4.9)
[2023-06-10 07:57] LABS: BLOOD UREA NITROGEN 117.4 mg/dL (7-18); CALCIUM 6.4 mg/dL (8.5-10.1)
[2023-06-10] MEDS ORDERED: CALCIUM GLUC IN NACL, ISO-OSM 1 GM/50 ML BAG IVPB ONE (08:30)
[2023-06-10] MEDS: MEROPENEM 1 GM in DEXTROSE 5%-WATER 100 ML IVPB SCH (09:56)
[2023-06-10] MEDS: PANTOPRAZOLE SODIUM 40 MG VIAL IVPUSH SCH (09:56)
[2023-06-10] MEDS: FLUDROCORTISONE ACETATE 0.1 MG TABLET (FP) PO SCH (09:56)
[2023-06-10] MEDS: HEPARIN NA (PORCINE) 5,000 UNITS/ML 1ML VIAL SQ SCH ×2 (09:57→21:11)
[2023-06-10] MEDS: CALCITRIOL 0.25 MCG CAPSULE (FP) PO SCH (09:57)
[2023-06-10] MEDS: VITAMIN B COMP W-C 1 EA TABLET (NEPHRO-VITE) GT SCH (09:57)
[2023-06-10 14:48] VITALS: BMI 17.6
[2023-06-10] MEDS: COLLAGENASE CLOSTRIDIUM HIST. 30 GRAMS TUBE TP SCH (15:20)
[2023-06-10] MEDS: NOREPINEPHRINE 0.9 % NACL 8 MG/250 ML BAG IVPB SCH (16:28)
[2023-06-10] MEDS: DAPTOMYCIN 250 MG in SODIUM CHLORIDE 50 ML IVPB SCH (16:28)
[2023-06-10] MEDS: CHLORHEXIDINE GLUCONATE 4% CLEANSER FOR DECOLONIZATION TP SCH (21:11)
[2023-06-10] MEDS: FENTANYL NS IVPB 500 MCG/100 ML BAG IVPB SCH (22:00)
[2023-06-11] MEDS: ACETAMINOPHEN 325 MG TABLET (FP) PO PRN (04:43)
[2023-06-11] MEDS: SODIUM CHLORIDE 1,000 ML IV SCH (06:11)
[2023-06-11 06:36] LABS: HEMATOCRIT 19.9 % (32.4-45.2); MCH 32.1 pg (25.7-33.7); MCHC 32.2 g/dl (32.0-36.0); MEAN CELL VOLUME 99.6 fl (80-96); MEAN PLT VOLUME 10.5 fl (7.5-11.1); PLATELET COUNT 125 10^3/uL (134-434); RDW 23.5 % (11.6-15.6); WHITE BLOOD COUNT 20.1 K/mm3 (4.0-10.0)
[2023-06-11 06:38] LABS: HEMOGLOBIN 6.4 GM/dL (10.7-15.3)
[2023-06-11 06:54] LABS: CHLORIDE 108 mmol/L (98-107); POTASSIUM 4.2 mmol/L (3.5-5.1); SODIUM 143 mmol/L (136-145)
[2023-06-11 06:59] LABS: ALBUMIN 1.8 g/dl (3.4-5.0); ANION GAP 15 MMOL/L (8-16); CO2 20 mmol/L (21-32); GLUCOSE,RANDOM 149 mg/dL (74-106); MAGNESIUM 2.5 mg/dL (1.8-2.4)
[2023-06-11 07:02] LABS: PHOSPHOROUS 7.1 mg/dL (2.5-4.9); SGOT/AST 41 U/L (15-37); SGPT/ALT 24 U/L (13-61)
[2023-06-11 07:03] LABS: BILIRUBIN,TOTAL 0.4 mg/dL (0.2-1); TOT PROT 4.7 g/dl (6.4-8.2)
[2023-06-11 07:04] LABS: ALK PHOS 97 U/L (45-117)
[2023-06-11 07:05] LABS: BLOOD UREA NITROGEN 128.9 mg/dL (7-18); CALCIUM 6.4 mg/dL (8.5-10.1)
[2023-06-11] MEDS ORDERED: CALCIUM GLUC IN NACL, ISO-OSM 1 GM/50 ML BAG IVPB ONE (08:15)
[2023-06-11 09:08] LABS: ANISOCYTOSIS 2+; MACROCYTOSIS 0
[2023-06-11] MEDS: FENTANYL NS IVPB 500 MCG/100 ML BAG IVPB SCH ×2 (09:26→21:00)
[2023-06-11] MEDS: PANTOPRAZOLE SODIUM 40 MG VIAL IVPUSH SCH ×3 (09:43→23:39)
[2023-06-11] MEDS: CALCITRIOL 0.25 MCG CAPSULE (FP) PO SCH (09:43)
[2023-06-11] MEDS: FLUDROCORTISONE ACETATE 0.1 MG TABLET (FP) PO SCH (09:43)
[2023-06-11] MEDS: HYDROCORTISONE SOD SUCCINATE 100 MG/2 ML VIAL IVPB SCH ×3 (09:44→23:59)
[2023-06-11] MEDS: VITAMIN B COMP W-C 1 EA TABLET (NEPHRO-VITE) GT SCH (09:44)
[2023-06-11] MEDS: COLLAGENASE CLOSTRIDIUM HIST. 30 GRAMS TUBE TP SCH (09:44)
[2023-06-11] MEDS: MEROPENEM 1 GM in DEXTROSE 5%-WATER 100 ML IVPB SCH (09:44)
[2023-06-11] MEDS: PROPOFOL 1,000,000 MCG/100 ML VIAL IVPB SCH (09:52)
[2023-06-11] MEDS: HEPARIN NA (PORCINE) 5,000 UNITS/ML 1ML VIAL SQ SCH (09:53)
[2023-06-11] MEDS ORDERED: MIDODRINE HCL 5 MG TABLET PO SCH (10:11)
[2023-06-11] MEDS: MIDODRINE HCL 5 MG TABLET PO SCH ×2 (10:57→18:30)
[2023-06-11] MEDS ORDERED: FUROSEMIDE 40 MG/4 ML INJECTABLE VIAL IVPUSH ONE (11:45)
[2023-06-11] MEDS: NOREPINEPHRINE 0.9 % NACL 8 MG/250 ML BAG IVPB SCH ×2 (13:42→20:10)
[2023-06-11 13:56] LABS: HEMATOCRIT 26.8 % (32.4-45.2); HEMOGLOBIN 8.8 GM/dL (10.7-15.3); MCH 31.7 pg (25.7-33.7); MEAN PLT VOLUME 10.9 fl (7.5-11.1); PLATELET COUNT 135 10^3/uL (134-434); RBC 2.79 M/mm3 (3.60-5.2); RDW 21.4 % (11.6-15.6)
[2023-06-11 14:20] LABS: ANISOCYTOSIS 2+; MACROCYTOSIS 2+
[2023-06-11] MEDS ORDERED: SODIUM CHLORIDE 500 ML IV STA (15:03)
[2023-06-11] MEDS: VASOPRESSIN 40 UNITS/100 ML BAG IV SCH (16:33)
[2023-06-11] MEDS ORDERED: GENTAMICIN INJECTION 100 MG in SODIUM CHLORIDE 97.5 ML IVPB ONE (19:33)
[2023-06-11] MEDS ORDERED: LACTATED RINGERS SOLUTION 1,000 ML/1,000 ML INFUS.BAG IV STA (19:35)
[2023-06-11] MEDS ORDERED: ACETAMINOPHEN 1000 MG/100 ML BAG IVPB ONE (19:50)
[2023-06-11 20:43] LABS: HEMATOCRIT 22.3 % (32.4-45.2); HEMOGLOBIN 7.6 GM/dL (10.7-15.3); MCHC 34.2 g/dl (32.0-36.0); MEAN CELL VOLUME 96.4 fl (80-96); MEAN PLT VOLUME 10.6 fl (7.5-11.1); PLATELET COUNT 148 10^3/uL (134-434); RBC 2.31 M/mm3 (3.60-5.2); RDW 21.5 % (11.6-15.6); WHITE BLOOD COUNT 20.3 K/mm3 (4.0-10.0)
[2023-06-11 20:52] LABS: LACTIC ACID 2.3 mmol/L (0.4-2.0)
[2023-06-11] MEDS: CHLORHEXIDINE GLUCONATE 4% CLEANSER FOR DECOLONIZATION TP SCH (22:20)
[2023-06-12] MEDS: MIDODRINE HCL 5 MG TABLET PO SCH ×3 (02:01→17:33)
[2023-06-12] MEDS: NOREPINEPHRINE 0.9 % NACL 8 MG/250 ML BAG IVPB SCH ×5 (02:02→21:20)
[2023-06-12] MEDS: HYDROCORTISONE SOD SUCCINATE 100 MG/2 ML VIAL IVPB SCH ×4 (05:20→23:50)
[2023-06-12] MEDS: PROPOFOL 1,000,000 MCG/100 ML VIAL IVPB SCH (07:20)
[2023-06-12] MEDS: FENTANYL NS IVPB 500 MCG/100 ML BAG IVPB SCH ×2 (07:21→16:39)
[2023-06-12 07:25] LABS: CHLORIDE 110 mmol/L (98-107); POTASSIUM 4.5 mmol/L (3.5-5.1); SODIUM 142 mmol/L (136-145)
[2023-06-12 07:31] LABS: ANION GAP 17 MMOL/L (8-16); CO2 15 mmol/L (21-32); GLUCOSE,RANDOM 234 mg/dL (74-106); MAGNESIUM 2.1 mg/dL (1.8-2.4)
[2023-06-12 07:33] LABS: HEMATOCRIT 17.7 % (32.4-45.2); MCH 31.9 pg (25.7-33.7); MCHC 33.9 g/dl (32.0-36.0); MEAN CELL VOLUME 94.2 fl (80-96); MEAN PLT VOLUME 9.9 fl (7.5-11.1); PLATELET COUNT 120 10^3/uL (134-434); RBC 1.88 M/mm3 (3.60-5.2); RDW 22.2 % (11.6-15.6); SGPT/ALT 18 U/L (13-61); WHITE BLOOD COUNT 19.6 K/mm3 (4.0-10.0)
[2023-06-12 07:35] LABS: SGOT/AST 42 U/L (15-37)
[2023-06-12 07:36] LABS: BILIRUBIN,TOTAL 0.4 mg/dL (0.2-1); TOT PROT 3.7 g/dl (6.4-8.2)
[2023-06-12 07:37] LABS: ALK PHOS 99 U/L (45-117)
[2023-06-12 07:41] LABS: ALBUMIN 1.4 g/dl (3.4-5.0); BLOOD UREA NITROGEN 128.4 mg/dL (7-18); CALCIUM 5.3 mg/dL (8.5-10.1)
[2023-06-12 07:55] LABS: EPI CELLS >36 /uL (0-25.1); HYALINE CASTS 13 /uL (0-3.1); PH,URINE 5.5 (5.0-8.0); URINE APPEARANCE TURBID; URINE BILIRUBIN NEGATIVE (NEGATIVE); URINE COLOR YELLOW; URINE GLUCOSE (UA) NEGATIVE (NEGATIVE); URINE KETONE NEGATIVE (NEGATIVE); URINE LEUK ESTERASE 2+ (NEGATIVE); URINE NITRITE NEGATIVE (NEGATIVE); URINE PROTEIN 3+ (NEGATIVE); URINE UROBILINOGEN 0.2 mg/dL (0.2-1.0); URINE WBC 4809 /uL (0-25.8)
[2023-06-12 07:56] LABS: PHOSPHOROUS > 9.0 mg/dL (2.5-4.9)
[2023-06-12] MEDS ORDERED: CALCIUM ACETATE 667 MG CAPSULE (FP) NGT SCH (08:31)
[2023-06-12 08:39] LABS: URINE BACTERIA 77.4 /uL (0-1359); URINE RBC 16707.9 /uL (0-23.9); YEAST NEGATIVE (NEGATIVE)
[2023-06-12 08:59] LABS: ANISOCYTOSIS 0; MACROCYTOSIS 0
[2023-06-12] MEDS ORDERED: CALCIUM GLUC IN NACL, ISO-OSM 1 GM/50 ML BAG IVPB ONE (09:00)
[2023-06-12] MEDS ORDERED: SODIUM BICARBONATE 8.4% 50 MEQ/50 ML DISP.SYRIN IVPUSH ONE ×2 (09:00→20:10)
[2023-06-12] MEDS: MEROPENEM 1 GM in DEXTROSE 5%-WATER 100 ML IVPB SCH (09:01)
[2023-06-12] MEDS: PANTOPRAZOLE SODIUM 40 MG VIAL IVPUSH SCH ×2 (09:01→21:58)
[2023-06-12] MEDS: CALCITRIOL 0.25 MCG CAPSULE (FP) PO SCH (09:02)
[2023-06-12] MEDS: VITAMIN B COMP W-C 1 EA TABLET (NEPHRO-VITE) GT SCH (09:02)
[2023-06-12] MEDS: FLUDROCORTISONE ACETATE 0.1 MG TABLET (FP) PO SCH (09:02)
[2023-06-12] MEDS: COLLAGENASE CLOSTRIDIUM HIST. 30 GRAMS TUBE TP SCH (09:05)
[2023-06-12] MEDS ORDERED: VASOPRESSIN 20 UNITS/ML VIAL IV ONE ×2 (09:39→14:13)
[2023-06-12] MEDS: VANCOMYCIN ORAL SOLUTION 125 MG/2.5 ML PO SCH ×3 (10:19→17:05)
[2023-06-12 11:58] LABS: ARTERIAL BLD GAS O2 SATURATION 96.7 % (95-98); ARTERIAL BLOOD GAS BASE EXCESS -12.9 mmol/L (-2-2); ARTERIAL BLOOD GAS PO2 106.4 mmHg (80-100)
[2023-06-12 11:59] LABS: VENT MODE AC; VENT RATE 24
[2023-06-12] MEDS ORDERED: CALCIUM ACETATE 667 MG CAPSULE (FP) PO SCH (12:00)
[2023-06-12] MEDS: SEVELAMER CARBONATE 0.8 GM POWDER PACKET NGT SCH ×3 (12:14→16:40)
[2023-06-12] MEDS: DAPTOMYCIN 250 MG in SODIUM CHLORIDE 50 ML IVPB SCH (16:07)
[2023-06-12] MEDS: ACETAMINOPHEN 325 MG TABLET (FP) PO PRN (16:18)
[2023-06-12] MEDS: VASOPRESSIN 40 UNITS/100 ML BAG IV SCH (16:39)
[2023-06-12 16:52] LABS: BASO % 0.1 % (0-2.0); EOS % 0.1 % (0-4.5); HEMATOCRIT 23.2 % (32.4-45.2); HEMOGLOBIN 7.6 GM/dL (10.7-15.3); LYMPH % 3.9 % (8-40); MCHC 32.8 g/dl (32.0-36.0); MEAN CELL VOLUME 91.3 fl (80-96); MEAN PLT VOLUME 10.3 fl (7.5-11.1); MONO % 2.4 % (3.8-10.2); NEUT % 93.5 % (42.8-82.8); PLATELET COUNT 128 10^3/uL (134-434); RBC 2.54 M/mm3 (3.60-5.2); RDW 18.8 % (11.6-15.6); WHITE BLOOD COUNT 20.9 K/mm3 (4.0-10.0)
[2023-06-12] MEDS ORDERED: VANCOMYCIN 500 MG in DEXTROSE 5%-WATER - 100 ML IVPB ONE (17:27)
[2023-06-12 17:38] LABS: ANISOCYTOSIS 2+; MACROCYTOSIS 0; OVALOCYTE 1+; TOXIC GRANULATION 1+
[2023-06-12] MEDS: SODIUM BICARBONATE 8.4% - 150 MEQ in DEXTROSE 5%-WATER - 950 ML IV SCH (21:06)
[2023-06-12] MEDS: CHLORHEXIDINE GLUCONATE 4% CLEANSER FOR DECOLONIZATION TP SCH (21:58)
[2023-06-13] MEDS: VASOPRESSIN 40 UNITS/100 ML BAG IV SCH ×3 (00:36→22:02)
[2023-06-13] MEDS ORDERED: INSULIN (NOVOLOG) ASPART 100 UNITS/ML 10ML VIAL ONE ×3 (01:33→13:51)
[2023-06-13] MEDS: MIDODRINE HCL 5 MG TABLET PO SCH ×3 (01:34→17:20)
[2023-06-13] MEDS: INSULIN SLIDING SCALE (NOVOLOG) 1 VIAL SQ SCH ×4 (01:35→18:45)
[2023-06-13] MEDS: NOREPINEPHRINE 0.9 % NACL 8 MG/250 ML BAG IVPB SCH ×4 (01:37→18:53)
[2023-06-13] MEDS: VANCOMYCIN ORAL SOLUTION 125 MG/2.5 ML PO SCH ×5 (02:10→23:36)
[2023-06-13] MEDS: FENTANYL NS IVPB 500 MCG/100 ML BAG IVPB SCH ×3 (03:37→17:14)
[2023-06-13 06:00] LABS: ARTERIAL BLD GAS O2 SATURATION 97.1 % (95-98); ARTERIAL BLOOD GAS BASE EXCESS -11.8 mmol/L (-2-2); ARTERIAL BLOOD GAS PO2 111.3 mmHg (80-100); ARTERIAL BLOOD GAS pH 7.207 (7.350-7.450)
[2023-06-13 06:06] LABS: VENT MODE D/C; VENT RATE 24
[2023-06-13] MEDS: HYDROCORTISONE SOD SUCCINATE 100 MG/2 ML VIAL IVPB SCH ×4 (06:15→23:36)
[2023-06-13 07:24] LABS: HEMATOCRIT 19.4 % (32.4-45.2); MCH 30.3 pg (25.7-33.7); MCHC 33.8 g/dl (32.0-36.0); MEAN CELL VOLUME 89.7 fl (80-96); PLATELET COUNT 125 10^3/uL (134-434); RBC 2.16 M/mm3 (3.60-5.2); RDW 19.1 % (11.6-15.6); WHITE BLOOD COUNT 20.2 K/mm3 (4.0-10.0)
[2023-06-13 07:31] LABS: HEMOGLOBIN 6.6 GM/dL (10.7-15.3)
[2023-06-13 07:57] LABS: CHLORIDE 109 mmol/L (98-107); POTASSIUM 4.8 mmol/L (3.5-5.1); SODIUM 144 mmol/L (136-145)
[2023-06-13 08:17] LABS: ALBUMIN 1.5 g/dl (3.4-5.0); ANION GAP 17 MMOL/L (8-16); CO2 18 mmol/L (21-32); GLUCOSE,RANDOM 246 mg/dL (74-106)
[2023-06-13 08:19] LABS: MAGNESIUM 2.2 mg/dL (1.8-2.4); SGOT/AST 44 U/L (15-37); SGPT/ALT 14 U/L (13-61)
[2023-06-13 08:20] LABS: BILIRUBIN,TOTAL 0.5 mg/dL (0.2-1); TOT PROT 3.8 g/dl (6.4-8.2)
[2023-06-13 08:24] LABS: ALK PHOS 76 U/L (45-117)
[2023-06-13 08:51] LABS: CALCIUM < 5.0 mg/dL (8.5-10.1)
[2023-06-13 08:52] LABS: PHOSPHOROUS 10.3 mg/dL (2.5-4.9)
[2023-06-13 09:12] LABS: ANISOCYTOSIS 1+; MACROCYTOSIS 1+
[2023-06-13] MEDS ORDERED: VASOPRESSIN 20 UNITS/ML VIAL IV ONE (09:18)
[2023-06-13] MEDS: PANTOPRAZOLE SODIUM 40 MG VIAL IVPUSH SCH ×2 (09:33→21:28)
[2023-06-13] MEDS: VITAMIN B COMP W-C 1 EA TABLET (NEPHRO-VITE) GT SCH (09:33)
[2023-06-13] MEDS: SODIUM BICARBONATE 8.4% - 150 MEQ in DEXTROSE 5%-WATER - 950 ML IV SCH ×3 (09:33→23:32)
[2023-06-13] MEDS: SEVELAMER CARBONATE 0.8 GM POWDER PACKET NGT SCH ×3 (09:33→17:00)
[2023-06-13] MEDS: FLUDROCORTISONE ACETATE 0.1 MG TABLET (FP) PO SCH (09:33)
[2023-06-13] MEDS: CALCITRIOL 0.25 MCG CAPSULE (FP) PO SCH (09:34)
[2023-06-13] MEDS: COLLAGENASE CLOSTRIDIUM HIST. 30 GRAMS TUBE TP SCH (09:34)
[2023-06-13] MEDS ORDERED: SODIUM BICARBONATE 8.4% 50 MEQ/50 ML DISP.SYRIN ONE (09:38)
[2023-06-13] MEDS: MEROPENEM 1 GM in DEXTROSE 5%-WATER 100 ML IVPB SCH (10:22)
[2023-06-13] MEDS: PROPOFOL 1,000,000 MCG/100 ML VIAL IVPB SCH (12:00)
[2023-06-13 16:01] LABS: HEMATOCRIT 22.9 % (32.4-45.2); HEMOGLOBIN 7.7 GM/dL (10.7-15.3); MCHC 33.8 g/dl (32.0-36.0); MEAN CELL VOLUME 85.9 fl (80-96); MEAN PLT VOLUME 9.3 fl (7.5-11.1); PLATELET COUNT 116 10^3/uL (134-434); RBC 2.67 M/mm3 (3.60-5.2); RDW 17.7 % (11.6-15.6); WHITE BLOOD COUNT 18.9 K/mm3 (4.0-10.0)
[2023-06-13] MEDS ORDERED: CALCIUM GLUC IN NACL, ISO-OSM 1 GM/50 ML BAG IVPB ONE (16:55)
[2023-06-13 17:45] LABS: ANISOCYTOSIS 1+; MACROCYTOSIS 0
[2023-06-13] MEDS: CHLORHEXIDINE GLUCONATE 4% CLEANSER FOR DECOLONIZATION TP SCH (21:28)
[2023-06-14] MEDS ORDERED: INSULIN (NOVOLOG) ASPART 100 UNITS/ML 10ML VIAL ONE ×5 (00:31→19:33)
[2023-06-14] MEDS: INSULIN SLIDING SCALE (NOVOLOG) 1 VIAL SQ SCH ×4 (00:34→19:32)
[2023-06-14] MEDS: PROPOFOL 1,000,000 MCG/100 ML VIAL IVPB SCH ×4 (01:45→19:22)
[2023-06-14] MEDS: MIDODRINE HCL 5 MG TABLET PO SCH ×3 (01:45→18:11)
[2023-06-14] MEDS: VASOPRESSIN 40 UNITS/100 ML BAG IV SCH (01:46)
[2023-06-14] MEDS: SODIUM BICARBONATE 8.4% - 150 MEQ in DEXTROSE 5%-WATER - 950 ML IV SCH (05:15)
[2023-06-14] MEDS: HYDROCORTISONE SOD SUCCINATE 100 MG/2 ML VIAL IVPB SCH ×4 (05:15→22:50)
[2023-06-14 07:08] LABS: HEMATOCRIT 21.9 % (32.4-45.2); HEMOGLOBIN 7.3 GM/dL (10.7-15.3); MCH 28.9 pg (25.7-33.7); MCHC 33.4 g/dl (32.0-36.0); MEAN CELL VOLUME 86.7 fl (80-96); MEAN PLT VOLUME 9.8 fl (7.5-11.1); PLATELET COUNT 114 10^3/uL (134-434); RBC 2.52 M/mm3 (3.60-5.2); RDW 18.8 % (11.6-15.6); WHITE BLOOD COUNT 16.3 K/mm3 (4.0-10.0)
[2023-06-14 07:32] LABS: CHLORIDE 105 mmol/L (98-107); POTASSIUM 4.4 mmol/L (3.5-5.1); SODIUM 140 mmol/L (136-145)
[2023-06-14 07:35] LABS: ALBUMIN 1.6 g/dl (3.4-5.0); ANION GAP 15 MMOL/L (8-16); CO2 21 mmol/L (21-32); GLUCOSE,RANDOM 246 mg/dL (74-106)
[2023-06-14 07:36] LABS: MAGNESIUM 2.4 mg/dL (1.8-2.4)
[2023-06-14 07:38] LABS: SGOT/AST 37 U/L (15-37); SGPT/ALT 15 U/L (13-61)
[2023-06-14 07:40] LABS: TOT PROT 3.8 g/dl (6.4-8.2)
[2023-06-14 07:42] LABS: ALK PHOS 75 U/L (45-117); BILIRUBIN,TOTAL 0.7 mg/dL (0.2-1)
[2023-06-14] MEDS: FENTANYL NS IVPB 500 MCG/100 ML BAG IVPB SCH ×2 (07:44→19:15)
[2023-06-14 08:53] LABS: BLOOD UREA NITROGEN 132.4 mg/dL (7-18); PHOSPHOROUS 10.6 mg/dL (2.5-4.9)
[2023-06-14 09:04] LABS: CALCIUM < 5.0 mg/dL (8.5-10.1)
[2023-06-14] MEDS: MEROPENEM 1 GM in DEXTROSE 5%-WATER 100 ML IVPB SCH (09:24)
[2023-06-14] MEDS: SEVELAMER CARBONATE 0.8 GM POWDER PACKET NGT SCH ×3 (09:24→18:11)
[2023-06-14] MEDS: FLUDROCORTISONE ACETATE 0.1 MG TABLET (FP) PO SCH (09:24)
[2023-06-14] MEDS: PANTOPRAZOLE SODIUM 40 MG VIAL IVPUSH SCH ×2 (09:24→22:50)
[2023-06-14] MEDS: CALCITRIOL 0.25 MCG CAPSULE (FP) PO SCH (09:24)
[2023-06-14] MEDS: VITAMIN B COMP W-C 1 EA TABLET (NEPHRO-VITE) GT SCH (09:24)
[2023-06-14 09:41] LABS: ANISOCYTOSIS 2+; MACROCYTOSIS 0
[2023-06-14] MEDS ORDERED: CALCIUM GLUCONATE 10% - 1,000 MG/10 ML VIAL IVPB ONE (09:42)
[2023-06-14] MEDS: VANCOMYCIN ORAL SOLUTION 125 MG/2.5 ML PO SCH ×4 (10:11→23:52)
[2023-06-14] MEDS: COLLAGENASE CLOSTRIDIUM HIST. 30 GRAMS TUBE TP SCH (10:24)
[2023-06-14] MEDS: NOREPINEPHRINE 0.9 % NACL 8 MG/250 ML BAG IVPB SCH (10:25)
[2023-06-14] MEDS: DAPTOMYCIN 250 MG in SODIUM CHLORIDE 50 ML IVPB SCH (15:23)
[2023-06-14] MEDS: ACETAMINOPHEN 325 MG TABLET (FP) PO PRN (20:39)
[2023-06-14] MEDS: CHLORHEXIDINE GLUCONATE 4% CLEANSER FOR DECOLONIZATION TP SCH (22:50)
[2023-06-15] MEDS: INSULIN SLIDING SCALE (NOVOLOG) 1 VIAL SQ SCH ×4 (00:31→19:04)
[2023-06-15] MEDS: MIDODRINE HCL 5 MG TABLET PO SCH ×3 (01:34→18:09)
[2023-06-15] MEDS: VANCOMYCIN ORAL SOLUTION 125 MG/2.5 ML PO SCH ×4 (06:29→23:34)
[2023-06-15] MEDS: HYDROCORTISONE SOD SUCCINATE 100 MG/2 ML VIAL IVPB SCH ×4 (06:29→23:33)
[2023-06-15 07:02] LABS: HEMATOCRIT 20.3 % (32.4-45.2); MCH 29.6 pg (25.7-33.7); MCHC 33.8 g/dl (32.0-36.0); MEAN CELL VOLUME 87.6 fl (80-96); MEAN PLT VOLUME 9.9 fl (7.5-11.1); PLATELET COUNT 101 10^3/uL (134-434); RBC 2.32 M/mm3 (3.60-5.2); RDW 18.5 % (11.6-15.6); WHITE BLOOD COUNT 14.8 K/mm3 (4.0-10.0)
[2023-06-15 07:13] LABS: HEMOGLOBIN 6.9 GM/dL (10.7-15.3)
[2023-06-15 07:17] LABS: CHLORIDE 104 mmol/L (98-107); POTASSIUM 4.1 mmol/L (3.5-5.1); SODIUM 140 mmol/L (136-145)
[2023-06-15 07:21] LABS: ALBUMIN 1.6 g/dl (3.4-5.0); ANION GAP 16 MMOL/L (8-16); CO2 21 mmol/L (21-32); GLUCOSE,RANDOM 166 mg/dL (74-106)
[2023-06-15 07:22] LABS: MAGNESIUM 2.1 mg/dL (1.8-2.4)
[2023-06-15 07:24] LABS: CREATININE 3.9 mg/dL (0.55-1.3); SGOT/AST 41 U/L (15-37); SGPT/ALT 15 U/L (13-61)
[2023-06-15 07:25] LABS: TOT PROT 3.6 g/dl (6.4-8.2)
[2023-06-15 07:27] LABS: ALK PHOS 90 U/L (45-117)
[2023-06-15 07:28] LABS: BILIRUBIN,TOTAL 0.5 mg/dL (0.2-1)
[2023-06-15 07:35] LABS: BLOOD UREA NITROGEN 138.9 mg/dL (7-18)
[2023-06-15 08:36] LABS: PHOSPHOROUS 9.6 mg/dL (2.5-4.9)
[2023-06-15 08:42] LABS: CALCIUM < 5.0 mg/dL (8.5-10.1)
[2023-06-15] MEDS: MEROPENEM 1 GM in DEXTROSE 5%-WATER 100 ML IVPB SCH (09:50)
[2023-06-15] MEDS: SEVELAMER CARBONATE 0.8 GM POWDER PACKET NGT SCH ×3 (09:50→18:07)
[2023-06-15] MEDS: FLUDROCORTISONE ACETATE 0.1 MG TABLET (FP) PO SCH (09:50)
[2023-06-15] MEDS: VITAMIN B COMP W-C 1 EA TABLET (NEPHRO-VITE) GT SCH (09:50)
[2023-06-15] MEDS: CALCITRIOL 0.25 MCG CAPSULE (FP) PO SCH ×2 (09:50→11:40)
[2023-06-15] MEDS: PANTOPRAZOLE SODIUM 40 MG VIAL IVPUSH SCH ×2 (09:50→21:31)
[2023-06-15 10:23] LABS: ANISOCYTOSIS 3+; MACROCYTOSIS 0
[2023-06-15] MEDS: PROPOFOL 1,000,000 MCG/100 ML VIAL IVPB SCH ×2 (11:06→13:34)
[2023-06-15] MEDS: NOREPINEPHRINE 0.9 % NACL 8 MG/250 ML BAG IVPB SCH (11:09)
[2023-06-15] MEDS: COLLAGENASE CLOSTRIDIUM HIST. 30 GRAMS TUBE TP SCH (11:41)
[2023-06-15] MEDS: FENTANYL NS IVPB 500 MCG/100 ML BAG IVPB SCH ×2 (11:46→19:04)
[2023-06-15] MEDS ORDERED: CALCIUM GLUCONATE 10% - 1,000 MG/10 ML VIAL IVPB ONE ×2 (15:00→20:00)
[2023-06-15] MEDS ORDERED: INSULIN (NOVOLOG) ASPART 100 UNITS/ML 10ML VIAL ONE (18:19)
[2023-06-15] MEDS: ACETAMINOPHEN 325 MG TABLET (FP) PO PRN (18:20)
[2023-06-15] MEDS: CHLORHEXIDINE GLUCONATE 4% CLEANSER FOR DECOLONIZATION TP SCH (21:31)
[2023-06-16] MEDS: FENTANYL NS IVPB 500 MCG/100 ML BAG IVPB SCH ×3 (00:59→21:10)
[2023-06-16] MEDS: INSULIN SLIDING SCALE (NOVOLOG) 1 VIAL SQ SCH ×4 (01:00→18:46)
[2023-06-16] MEDS: MIDODRINE HCL 5 MG TABLET PO SCH ×3 (01:19→18:44)
[2023-06-16] MEDS: HYDROCORTISONE SOD SUCCINATE 100 MG/2 ML VIAL IVPB SCH ×4 (05:11→22:43)
[2023-06-16] MEDS: VANCOMYCIN ORAL SOLUTION 125 MG/2.5 ML PO SCH ×4 (05:11→23:03)
[2023-06-16 07:24] LABS: HEMATOCRIT 28.8 % (32.4-45.2); HEMOGLOBIN 9.7 GM/dL (10.7-15.3); MCH 29.3 pg (25.7-33.7); MCHC 33.6 g/dl (32.0-36.0); MEAN CELL VOLUME 87.1 fl (80-96); MEAN PLT VOLUME 10.1 fl (7.5-11.1); PLATELET COUNT 132 10^3/uL (134-434); RBC 3.31 M/mm3 (3.60-5.2); RDW 17.2 % (11.6-15.6); WHITE BLOOD COUNT 22.1 K/mm3 (4.0-10.0)
[2023-06-16 07:44] LABS: CHLORIDE 103 mmol/L (98-107); POTASSIUM 4.5 mmol/L (3.5-5.1); SODIUM 139 mmol/L (136-145)
[2023-06-16 07:53] LABS: ANION GAP 18 MMOL/L (8-16); CO2 18 mmol/L (21-32); GLUCOSE,RANDOM 106 mg/dL (74-106); MAGNESIUM 2.1 mg/dL (1.8-2.4)
[2023-06-16 07:56] LABS: CREATININE 3.9 mg/dL (0.55-1.3); SGOT/AST 57 U/L (15-37); SGPT/ALT 19 U/L (13-61)
[2023-06-16 07:58] LABS: BILIRUBIN,TOTAL 0.6 mg/dL (0.2-1); TOT PROT 4.2 g/dl (6.4-8.2)
[2023-06-16 08:00] LABS: ALBUMIN 1.9 g/dl (3.4-5.0); ALK PHOS 122 U/L (45-117); CALCIUM 5.1 mg/dL (8.5-10.1); PHOSPHOROUS > 9.0 mg/dL (2.5-4.9)
[2023-06-16 08:31] LABS: ANISOCYTOSIS 0; HELMET CELLS 0; HOWELL-JOLLY BODIES 0; MACROCYTOSIS 0; OVALOCYTE 0; ROULEAU 0; SICKELED CELLS 0; TARGET CELLS 0; TEAR DROP CELLS 0; TOXIC GRANULATION 0
[2023-06-16] MEDS: SEVELAMER CARBONATE 0.8 GM POWDER PACKET NGT SCH ×3 (09:38→17:55)
[2023-06-16] MEDS: VITAMIN B COMP W-C 1 EA TABLET (NEPHRO-VITE) GT SCH (10:39)
[2023-06-16] MEDS: FLUDROCORTISONE ACETATE 0.1 MG TABLET (FP) PO SCH (10:39)
[2023-06-16] MEDS: PANTOPRAZOLE SODIUM 40 MG VIAL IVPUSH SCH ×2 (10:39→21:11)
[2023-06-16] MEDS: CALCITRIOL 0.25 MCG CAPSULE (FP) PO SCH (10:40)
[2023-06-16] MEDS: MEROPENEM 1 GM in DEXTROSE 5%-WATER 100 ML IVPB SCH (10:40)
[2023-06-16] MEDS: COLLAGENASE CLOSTRIDIUM HIST. 30 GRAMS TUBE TP SCH (10:41)
[2023-06-16] MEDS: PROPOFOL 1,000,000 MCG/100 ML VIAL IVPB SCH (12:24)
[2023-06-16] MEDS: NOREPINEPHRINE 0.9 % NACL 8 MG/250 ML BAG IVPB SCH (15:00)
[2023-06-16] MEDS: ACETAMINOPHEN 325 MG TABLET (FP) PO PRN (16:20)
[2023-06-16] MEDS ORDERED: INSULIN (NOVOLOG) ASPART 100 UNITS/ML 10ML VIAL ONE (16:26)
[2023-06-16] MEDS: DAPTOMYCIN 250 MG in SODIUM CHLORIDE 50 ML IVPB SCH (16:28)
[2023-06-16] MEDS ORDERED: VANCOMYCIN 500 MG in DEXTROSE 5%-WATER - 100 ML IVPB ONE (17:20)
[2023-06-16] MEDS: CHLORHEXIDINE GLUCONATE 4% CLEANSER FOR DECOLONIZATION TP SCH (21:16)
[2023-06-17] MEDS: INSULIN SLIDING SCALE (NOVOLOG) 1 VIAL SQ SCH ×4 (01:06→19:01)
[2023-06-17] MEDS: MIDODRINE HCL 5 MG TABLET PO SCH ×3 (01:33→17:36)
[2023-06-17] MEDS: VANCOMYCIN ORAL SOLUTION 125 MG/2.5 ML PO SCH ×3 (05:08→17:36)
[2023-06-17] MEDS: HYDROCORTISONE SOD SUCCINATE 100 MG/2 ML VIAL IVPB SCH ×3 (05:09→17:35)
[2023-06-17] MEDS: FENTANYL NS IVPB 500 MCG/100 ML BAG IVPB SCH (05:10)
[2023-06-17 07:28] LABS: HEMATOCRIT 25.8 % (32.4-45.2); HEMOGLOBIN 8.6 GM/dL (10.7-15.3); MCH 29.3 pg (25.7-33.7); MCHC 33.2 g/dl (32.0-36.0); MEAN CELL VOLUME 88.4 fl (80-96); MEAN PLT VOLUME 9.9 fl (7.5-11.1); PLATELET COUNT 115 10^3/uL (134-434); RBC 2.92 M/mm3 (3.60-5.2); RDW 17.3 % (11.6-15.6); WHITE BLOOD COUNT 17.9 K/mm3 (4.0-10.0)
[2023-06-17 07:47] LABS: CHLORIDE 103 mmol/L (98-107); POTASSIUM 4.1 mmol/L (3.5-5.1); SODIUM 138 mmol/L (136-145)
[2023-06-17 07:52] LABS: ANION GAP 17 MMOL/L (8-16); CO2 19 mmol/L (21-32)
[2023-06-17 07:53] LABS: ALBUMIN 1.7 g/dl (3.4-5.0); GLUCOSE,RANDOM 121 mg/dL (74-106); MAGNESIUM 2.3 mg/dL (1.8-2.4)
[2023-06-17 07:56] LABS: CREATININE 3.9 mg/dL (0.55-1.3); SGOT/AST 57 U/L (15-37); SGPT/ALT 18 U/L (13-61)
[2023-06-17 07:57] LABS: BILIRUBIN,TOTAL 0.5 mg/dL (0.2-1); TOT PROT 3.9 g/dl (6.4-8.2)
[2023-06-17 07:58] LABS: ALK PHOS 109 U/L (45-117)
[2023-06-17 08:49] LABS: CALCIUM < 5.0 mg/dL (8.5-10.1)
[2023-06-17 09:15] LABS: BLOOD UREA NITROGEN 145.3 mg/dL (7-18); PHOSPHOROUS 9.6 mg/dL (2.5-4.9)
[2023-06-17 09:16] LABS: ANISOCYTOSIS 2+; MACROCYTOSIS 0
[2023-06-17 09:16] LABS: ARTERIAL BLD GAS O2 SATURATION 97.9 % (95-98); ARTERIAL BLOOD GAS PO2 109.8 mmHg (80-100); ARTERIAL BLOOD GAS pH 7.357 (7.350-7.450)
[2023-06-17 09:20] LABS: VENT MODE AC; VENT RATE 20
[2023-06-17] MEDS: MEROPENEM 1 GM in DEXTROSE 5%-WATER 100 ML IVPB SCH (09:59)
[2023-06-17] MEDS: PANTOPRAZOLE SODIUM 40 MG VIAL IVPUSH SCH ×2 (10:00→21:41)
[2023-06-17] MEDS: ACETAMINOPHEN 325 MG TABLET (FP) PO PRN (10:00)
[2023-06-17] MEDS: CALCITRIOL 0.25 MCG CAPSULE (FP) PO SCH (10:01)
[2023-06-17] MEDS: VITAMIN B COMP W-C 1 EA TABLET (NEPHRO-VITE) GT SCH (10:01)
[2023-06-17] MEDS: COLLAGENASE CLOSTRIDIUM HIST. 30 GRAMS TUBE TP SCH (10:01)
[2023-06-17] MEDS: FLUDROCORTISONE ACETATE 0.1 MG TABLET (FP) PO SCH (10:01)
[2023-06-17] MEDS: PROPOFOL 1,000,000 MCG/100 ML VIAL IVPB SCH ×2 (10:02→15:25)
[2023-06-17] MEDS: SEVELAMER CARBONATE 0.8 GM POWDER PACKET NGT SCH ×3 (10:07→17:36)
[2023-06-17] MEDS ORDERED: SODIUM CHLORIDE 1,000 ML IV STA (10:19)
[2023-06-17] MEDS: DEXMEDETOMIDINE PREMIX 400 MCG/100 ML BAG IVPB SCH (13:00)
[2023-06-17] MEDS ORDERED: CALCIUM GLUC IN NACL, ISO-OSM 1 GM/50 ML BAG IVPB ONE (15:15)
[2023-06-17] MEDS ORDERED: INSULIN (NOVOLOG) ASPART 100 UNITS/ML 10ML VIAL ONE (15:23)
[2023-06-17] MEDS: NOREPINEPHRINE 0.9 % NACL 8 MG/250 ML BAG IVPB SCH (15:25)
[2023-06-17] MEDS: HEPARIN NA (PORCINE) 5,000 UNITS/ML 1ML VIAL SQ SCH (21:41)
[2023-06-17] MEDS: CHLORHEXIDINE GLUCONATE 4% CLEANSER FOR DECOLONIZATION TP SCH (21:41)
[2023-06-18] MEDS: VANCOMYCIN ORAL SOLUTION 125 MG/2.5 ML PO SCH ×4 (00:02→17:35)
[2023-06-18] MEDS: INSULIN SLIDING SCALE (NOVOLOG) 1 VIAL SQ SCH ×4 (01:01→18:34)
[2023-06-18] MEDS: MIDODRINE HCL 5 MG TABLET PO SCH ×3 (01:52→17:36)
[2023-06-18] MEDS: HYDROCORTISONE SOD SUCCINATE 100 MG/2 ML VIAL IVPB SCH ×4 (05:05→17:35)
[2023-06-18 07:32] LABS: HEMATOCRIT 25.5 % (32.4-45.2); HEMOGLOBIN 8.4 GM/dL (10.7-15.3); MCH 29.4 pg (25.7-33.7); MEAN CELL VOLUME 89.1 fl (80-96); MEAN PLT VOLUME 10.2 fl (7.5-11.1); PLATELET COUNT 108 10^3/uL (134-434); RBC 2.86 M/mm3 (3.60-5.2); WHITE BLOOD COUNT 15.8 K/mm3 (4.0-10.0)
[2023-06-18 07:56] LABS: CHLORIDE 103 mmol/L (98-107); POTASSIUM 4.1 mmol/L (3.5-5.1); SODIUM 139 mmol/L (136-145)
[2023-06-18 07:59] LABS: ALBUMIN 1.7 g/dl (3.4-5.0); ANION GAP 18 MMOL/L (8-16); CO2 18 mmol/L (21-32); GLUCOSE,RANDOM 156 mg/dL (74-106); MAGNESIUM 2.2 mg/dL (1.8-2.4)
[2023-06-18 08:02] LABS: CREATININE 3.9 mg/dL (0.55-1.3); SGOT/AST 62 U/L (15-37); SGPT/ALT 20 U/L (13-61)
[2023-06-18 08:03] LABS: BILIRUBIN,TOTAL 0.4 mg/dL (0.2-1); TOT PROT 3.9 g/dl (6.4-8.2)
[2023-06-18 08:05] LABS: ALK PHOS 117 U/L (45-117)
[2023-06-18] MEDS: SEVELAMER CARBONATE 0.8 GM POWDER PACKET NGT SCH ×3 (09:49→17:35)
[2023-06-18] MEDS: HEPARIN NA (PORCINE) 5,000 UNITS/ML 1ML VIAL SQ SCH (09:49)
[2023-06-18] MEDS: FLUDROCORTISONE ACETATE 0.1 MG TABLET (FP) PO SCH (09:49)
[2023-06-18] MEDS: PANTOPRAZOLE SODIUM 40 MG VIAL IVPUSH SCH (09:49)
[2023-06-18] MEDS: VITAMIN B COMP W-C 1 EA TABLET (NEPHRO-VITE) GT SCH (09:49)
[2023-06-18] MEDS: MEROPENEM 1 GM in DEXTROSE 5%-WATER 100 ML IVPB SCH (09:50)
[2023-06-18] MEDS: CALCITRIOL 0.25 MCG CAPSULE (FP) PO SCH (09:50)
[2023-06-18] MEDS: COLLAGENASE CLOSTRIDIUM HIST. 30 GRAMS TUBE TP SCH (09:51)
[2023-06-18 10:00] LABS: ANISOCYTOSIS 2+; MACROCYTOSIS 0; OVALOCYTE 2+; TEAR DROP CELLS 2+
[2023-06-18 10:25] LABS: BLOOD UREA NITROGEN 147.9 mg/dL (7-18); CALCIUM < 5.0 mg/dL (8.5-10.1); PHOSPHOROUS 9.5 mg/dL (2.5-4.9)
[2023-06-18] MEDS ORDERED: MORPHINE SULFATE/0.9% NACL/PF 100 MG/100 ML BAG IVPB SCH (10:45)
[2023-06-18] MEDS: NOREPINEPHRINE 0.9 % NACL 8 MG/250 ML BAG IVPB SCH ×2 (11:55→18:06)
[2023-06-18] MEDS: DEXMEDETOMIDINE PREMIX 400 MCG/100 ML BAG IVPB SCH (11:55)
[2023-06-18] MEDS ORDERED: INSULIN (NOVOLOG) ASPART 100 UNITS/ML 10ML VIAL ONE ×2 (13:24→17:32)
[2023-06-18] MEDS: DAPTOMYCIN 250 MG in SODIUM CHLORIDE 50 ML IVPB SCH (16:10)
[2023-06-18] MEDS ORDERED: VASOPRESSIN 20 UNITS/ML VIAL IV ONE (16:20)
[2023-06-18] MEDS ORDERED: VASOPRESSIN 40 UNITS/100 ML BAG IV SCH (16:30)
[2023-06-18] MEDS: PROPOFOL 1,000,000 MCG/100 ML VIAL IVPB SCH (17:37)
[2023-06-18] MEDS ORDERED: PHENYLEPHRINE NS PREMIX 50,000 MCG/500 ML BAG CVP SCH (18:30)
[2023-06-19 00:16] VITALS: BP 38/12; PULSE 124; RESP 23; TEMP 98.7
[2023-06-19 17:12] LABS: FREE KAPPA,SERUM Note: mg/L (3.3-19.4)
== END 2023-06-18 20:30 | disposition expired | DRG 710 ==
LOC: JER 23:15 → JICU 06-05 02:36
PROVIDERS: ADMIT Internal Medicine Pulmonary Disease; ATTEND Internal Medicine
PROC: 0DH67UZ Insertion of Feeding Device into Stomach, Via Natural or Artificial Opening (ICD-10-PCS; principal; 2023-06-05)
PROC: 5A1955Z Respiratory Ventilation, Greater than 96 Consecutive Hours (ICD-10-PCS; 2023-06-05)
PROC: 0BH17EZ Insertion of Endotracheal Airway into Trachea, Via Natural or Artificial Opening (ICD-10-PCS; 2023-06-05)
PROC: 3E0G76Z Introduction of Nutritional Substance into Upper GI, Via Natural or Artificial Opening (ICD-10-PCS; 2023-06-05)
PROC: 05HM33Z Insertion of Infusion Device into Right Internal Jugular Vein, Percutaneous Approach (ICD-10-PCS; 2023-06-05)
PROC: B543ZZA Ultrasonography of Right Jugular Veins, Guidance (ICD-10-PCS; 2023-06-05)
PROC: 4A133B1 Monitoring of Arterial Pressure, Peripheral, Percutaneous Approach (ICD-10-PCS; 2023-06-05)
PROC: 4A133J1 Monitoring of Arterial Pulse, Peripheral, Percutaneous Approach (ICD-10-PCS; 2023-06-05)
PROC: 30233N1 Transfusion of Nonautologous Red Blood Cells into Peripheral Vein, Percutaneous Approach (ICD-10-PCS; 2023-06-06)
PROC: 05HN33Z Insertion of Infusion Device into Left Internal Jugular Vein, Percutaneous Approach (ICD-10-PCS; 2023-06-12)
PROC: B544ZZA Ultrasonography of Left Jugular Veins, Guidance (ICD-10-PCS; 2023-06-12)
DX: A41.89 Other specified sepsis (principal); E43 Unspecified severe protein-calorie malnutrition; J18.9 Pneumonia, unspecified organism; J96.21 Acute and chronic respiratory failure with hypoxia; R65.21 Severe sepsis with septic shock; R64 Cachexia; C90.00 Multiple myeloma not having achieved remission; L89.153 Pressure ulcer of sacral region, stage 3; N17.9 Acute kidney failure, unspecified; E87.20 Acidosis, unspecified; N39.0 Urinary tract infection, site not specified; Z68.1 Body mass index [BMI] 19.9 or less, adult; A04.72 Enterocolitis due to Clostridium difficile, not specified as recurrent; D69.6 Thrombocytopenia, unspecified; E83.39 Other disorders of phosphorus metabolism; E83.41 Hypermagnesemia; E83.51 Hypocalcemia; D50.9 Iron deficiency anemia, unspecified; K72.00 Acute and subacute hepatic failure without coma; D72.829 Elevated white blood cell count, unspecified; E87.5 Hyperkalemia
CPT/HCPCS: 0241U-QW; 36415; 36430; 36600; 71045-TC-FY; 71250-TC; 74019-TC-FY; 76775-TC; 80048; 80053; 81003; 82272; 82308; 82550; 82553; 82570; 82607; 82746; 82784; 82803; 82962; 83605; 83735; 83880; 83883; 84100; 84155; 84165; 84300; 84443; 84484; 85025; 85027; 85610; 85730; 86140; 86334; 86803; 86850; 86900; 86901; 86922; 87040; 87070; 87077; 87086; 87186; 87205; 87324; 87340; 87449; 87493; 87522; 93005; 93010; 93306-TC; 94002; 99285-25; G0480; J0878; J1644; J3490; P9058